=== PATIENT | female | born 1955 | race Caucasian/White ===

== ENCOUNTER → 2018-06-18 14:41 | Outpatient (CLI) | payer OTHER, SELFPAY ==
--- NOTE | 2018-06-18 14:44 | DI.REPORT_ITS ---
SYMPTOMS/DIAGNOSIS: RASH, R21, SARCOIDOSIS, D86.9 CHEST X-RAY, PA AND LATERAL: Comparison is 01/12/03. The heart is normal in size. The lungs are clear. The mediastinal structures and pleura appear intact. IMPRESSION: Normal chest.
[2018-06-18 15:19] LABS: Abs Immature Grans 0.02 k/cumm (0.0-0.09); Absolute Basophil Count 0.02 k/cumm (0.0-0.2); Absolute Eosinophil Count 0.08 k/cumm (0.0-0.7); Absolute Lymphocyte Count 2.19 k/cumm (1.2-3.4); Absolute Monocyte Count 0.45 k/cumm (0.11-0.7); Absolute Neutrophil Count 4.96 k/cumm (1.2-6.7); Basophils % 0.3; HCT 39.3 % (36.0-46.0); HGB 13.3 g/dL (12.0-15.5); Immature Grans % 0.3; Lymphocytes % 28.4; Mean Corp. HGB Concentration 33.8 g/dL (32.0-36.0); Mean Corpuscular Hemoglobin 30.1 pg (27.0-33.0); Mean Corpuscular Volume 88.9 fL (80-95); Mean Platelet Volume 10.1 fL (8.0-11.0); Monocytes % 5.8; Neutrophils % 64.2; Platelet Count 268 x1000/uL (130-400); RBC 4.42 m/cumm (4.00-5.20); RBC Distribution Width 12.1 % (11.7-14.6); White Blood Cell Count 7.72 k/cumm (4.4-10.8)
[2018-06-18 16:15] LABS: ALT 29 U/L (12-78); AST 19 U/L (15-37); Albumin 4.2 g/dL (3.4-5.0); Alkaline Phosphatase 89 U/L (46-116); Anion Gap 7.1 mmol/L (3-11); BUN 31 mg/dL (7-18); Bilirubin, Total 0.3 mg/dL (0.2-1.0); CO2 28.9 mmol/L (21.0-32.0); CREATININE 0.64 mg/dL (0.55-1.02); Calcium 9.1 mg/dL (8.5-10.1); Chloride 103 mmol/L (98-107); Glucose 85 mg/dL (70-100); Potassium 3.9 mmol/L (3.5-5.1); Sodium 139 mmol/L (136-145); Total Protein 7.2 g/dL (6.4-8.2)
[2018-06-19 17:09] LABS: Angiotensin Converting Enzyme 38 U/L (8 - 53)
[2018-06-23 10:44] LABS: TB Interpretation Negative (NEGAT)
== END ==
PROVIDERS: PCP Nurse Practitioner Family; Visit Provider Nurse Practitioner Family
DX: D86.9 Sarcoidosis, unspecified (principal); R21 Rash and other nonspecific skin eruption
CPT/HCPCS: 36415; 80053; 82164; 71046; 85025; 86480

== ENCOUNTER → 2018-06-30 03:55 | Outpatient (CLI) | payer OTHER, SELFPAY ==
--- NOTE | 2018-06-30 13:31 | PFT_ITS ---
PULMONARY FUNCTION TEST REPORT DATE OF SERVICE - June 30, 2018 REQUESTING PROVIDER Alysa Price NP INTERPRETATION OF STUDY Spirometry shows no evidence of obstructive airways disease. No bronchodilator testing was carried out. LUNG VOLUMES - Lung volumes show no evidence of restriction. DIFFUSION CAPACITY- Normal. AIRWAY RESISTANCE - Normal. IMPRESSION Normal pulmonary function study. Clinical correlation recommended. Maria Alejandra Martinez M.D. JAVID/kojo T - 07/01/2018
== END ==
PROVIDERS: PCP Nurse Practitioner Family; Visit Provider Nurse Practitioner Family
DX: D86.9 Sarcoidosis, unspecified (principal)
CPT/HCPCS: 94060; 94150; 94726; 94729

== ENCOUNTER 2020-09-28 14:10 | Outpatient (REF) | payer OTHER, SELFPAY ==
[2020-10-03 02:03] LABS: Patient Race White; SARS-CoV-2 RNA Undetected (Undetected); SARS-CoV-2 Specimen Source Nasal
== END 2020-09-28 14:30 ==
LOC: NCHCN 14:10
PROVIDERS: PCP Nurse Practitioner Family; Visit Provider Nurse Practitioner Family
DX: Z20.828 Contact with and (suspected) exposure to other viral communicable diseases (principal)
CPT/HCPCS: U0003

== ENCOUNTER 2020-10-31 18:36 | Outpatient (REF) | payer OTHER, SELFPAY ==
[2020-10-31 22:05] LABS: HCT 41.3 % (36.0-46.0); HGB 13.6 g/dL (11.2-15.7); MCH 29.2 pg (27.0-33.0); MCHC 32.9 % (32.0-36.0); MCV 88.8 fL (80-95); MPV 11.1 fL (8.0-11.0); Platelet Count 210 10^3/uL (130-400); RBC 4.65 10^6/uL (3.93-5.22); RDW 11.8 % (11.7-14.6); RDW-SD 37.9 fL; WBC 7.25 10^3/uL (4.4-10.8)
[2020-10-31 22:18] LABS: ALT 27 U/L (14-59); AST 19 U/L (15-37); Albumin 4.3 g/dL (3.4-5.0); Alkaline Phosphatase 82 U/L (46-116); Anion Gap 8.1 mmol/L (3-11); BUN 26 mg/dL (7-18); Bilirubin, Total 0.3 mg/dL (0.2-1.0); CO2 28.9 mmol/L (21.0-32.0); CREATININE 1.04 mg/dL (0.55-1.02); Calcium 9.1 mg/dL (8.5-10.1); Chloride 103 mmol/L (98-107); Estimated GFR 53.52 (mL/min/1.73m2); Glucose 101 mg/dL (74-106); Potassium 4.3 mmol/L (3.5-5.1); Sodium 140 mmol/L (136-145); Total Protein 7.3 g/dL (6.4-8.2)
== END 2020-10-31 18:56 ==
LOC: NCHCN 18:36
PROVIDERS: PCP Nurse Practitioner Family; Visit Provider Nurse Practitioner Family
DX: Z00.00 Encounter for general adult medical examination without abnormal findings (principal); D86.9 Sarcoidosis, unspecified
CPT/HCPCS: 80053; 85027

== ENCOUNTER 2021-05-14 01:33 | Outpatient (CLI) | payer OTHER, SELFPAY ==
--- NOTE | 2021-05-14 | DI.MRI_ITS ---
Exam(s) MR LOWER JOINT RT WO EXAM: MR LOWER JOINT RT WO CLINICAL HISTORY: RT KNEE PAIN, M25.561 TECHNIQUE: Multiplanar multisequence MRI was performed.. COMPARISON: No exams were available for comparison FINDINGS: MR examination of the knee was performed according to the usual protocol. There is no significant knee joint effusion. No significant bony signal abnormality seen. Medial tibiofemoral joint: The articular cartilage of the femur and tibia appears well maintained. T here is abnormal signal in the posterior horn of the medial meniscus and there is also contour abnorm ality the inferior surface of meniscus suggesting a nondisplaced tear.. The medial collateral ligame nt appears intact. No posteromedial corner injury seen. Lateral tibiofemoral joint: The articular cartilage of the femur and tibia appears well maintained. The meniscus and attachments appear intact. The lateral collateral ligament complex and posterolater al corner structures appear intact. Patellofemoral joint and extensor mechanism: The articular cartilage of the patellofemoral joint has a fairly smooth surface with mild signal abnormalities at the median ridge period. The superior and inferior patellar fat pads appear normal with no signal abnormality. The quadriceps tendon shows mildly abnormal signal adjacent to its patellar attachment consistent wit h tendinosis. Patellar tendon appear intact with no evidence of a tear or significant edema. The me dial and lateral retinacula appear intact. Cruciate ligaments: Cruciate ligaments and attachments appear normal with no evidence of a tear. Tibiofibular joint: No specific abnormality involving the tibiofibular joint. IMPRESSION: Probable nondisplaced posterior horn medial meniscal tear. Mild articular cartilage signal abnormalities of the patella at the median ridge. Probable mild quadriceps tendinosis. DATA REPOSITORY:
== END 2021-05-14 01:53 ==
PROVIDERS: PCP Nurse Practitioner Family; Visit Provider Nurse Practitioner Family
DX: M25.561 Pain in right knee
CPT/HCPCS: 73721

== ENCOUNTER 2022-09-22 20:37 | Emergency (ER) | payer MEDICARE, OTHER, SELFPAY ==
[2022-09-22 20:42] VITALS: BP 138/83; PULSE 87; RESP 16; TEMP 36.6; O2SAT 98
--- NOTE | 2022-09-22 20:45 | DI.RAD_ITS ---
Exam(s) XR THUMB RT EXAM: XR THUMB RT CLINICAL HISTORY: thumb injury. TECHNIQUE: 2D digital imaging was performed of the right finger. Three views were obtained. PA/AP, oblique, and lateral views were obtained. COMPARISON: No exams were available for comparison FINDINGS: BONES: No acute fracture is present. No bony destructive lesion is seen. JOINTS: No dislocation present. There are mild degenerative changes at the 1st CMC joint. SOFT TISSUE: Normal. IMPRESSION: No evidence of acute fracture, dislocation, or subluxation. DATA REPOSITORY: RADIATION DOSE DELIVERED:
[2022-09-22] MEDS: Amoxicillin 875/Clav. 125 TAB PO (20:52)
--- NOTE | 2022-09-22 21:38 | DI.VRAD_ITS ---
PROCEDURE INFORMATION: Exam: XR Right Finger(s) Exam date and time: 09/22/2022 9:21 PM Age: 67 years old Clinical indication: Other: Thumb injury TECHNIQUE: Imaging protocol: Radiologic exam of the Right fingers. Views: Minimum 2 views. COMPARISON: No relevant prior studies available. FINDINGS: Bones/joints: No evidence of fracture. Negative for dislocation. Negative for bony erosion or destructive change. Moderate narrowing noted at the 1st carpometacarpal joint. Soft tissues: No soft tissue air. No foreign bodies. IMPRESSION: No acute osseous abnormality. If symptoms persist, follow-up imaging is advised. Dictated and Authenticated by: Zacarias Mast MD. Ordering:ERICA Breaux MD
--- NOTE | 2022-09-22 21:53 | ED.GENADUL_ITS ---
Discharge Plan Disposition Patient Disposition: HOME Condition: Stable Discharge Details Clinical Impression: Sprain of hand, thumb, right, Cat bite of finger Primary Care Provider: Alysa Price ED Provider: Saeid Briseno Home Meds and New Rx's Prescriptions: Continued hydroxychloroquine 200 mg tablet 200 mg PO DAILY Discharge Instructions Instructions: Animal Bite (ED), Finger Sprain (ED) Additional Instructions: Watch for any signs of infection and return immediately to the emergency department if these occur. Otherwise keep splint in place for the next week and then slowly advance activity as tolerated. If not improving in the next 1 to 2 weeks please follow-up your primary care provider for reassessment. Referrals: Alysa Price [Primary Care Provider] - 1 week (If not improving) Discharge Data Discharge Date/Time-TO BE ENTERED AT DEPARTURE: 09/22/22 22:15 Medical Decision Making Patient presenting to the emergency department for chief complaint of right thumb injury. Patient states that her cat bit her and in the incident she ended up injuring her right thumb. As the evening has gone on there is been increased swelling and discomfort with decreased range of motion. Physical exam shows significant tenderness to the base of the right thumb and diffuse swelling. There is a single puncture wound on the palmar aspect at the MCP. Exam is otherwise unremarkable. Patient states she is up-to-date on tetanus. We will give patient Augmentin and due to severe pain we will perform radiological imaging. Review of radiological imaging shows no acute findings. Will place patient in a thumb spica splint for pain control and placed on Augmentin. Will inform patient to monitor symptoms and return for any new or significant worsening or if not improving the next week should follow-up with primary care provider. After discussion of diagnosis and plan of care patient has no further needs, questions, or concerns and states clear understanding to return to the emergency department for any worsening symptoms. This documentation was generated using [employer] dictation system, please disregard any oddities of phrase or misspellings. Imaging Data Radiologic Study: Imaging: X-Ray Radiologist's impression: FINDINGS: Bones/joints: No evidence of fracture. Negative for dislocation. Negative for bony erosion or destructive change. Moderate narrowing noted at the 1st carpometacarpal joint. Soft tissues: No soft tissue air. No foreign bodies. IMPRESSION: No acute osseous abnormality. If symptoms persist, follow-up imaging is advised. HPI General Mode of arrival: ambulatory . Date/Time Provider Initiated Documentation: 09/22/22 20:48 . Limitations to Documentation: no limitations . Information obtained by: RN notes reviewed . History of Present Illness 67 year old F presents to the emergency department with the chief complaint of catbite right thumb , described as severe, with intensity rated at 9. Quality is described as sharp, and is localized to the right and upper extremity. Patient reports no radiation. Patient started experiencing this hour(s) (4) and it has been constant. No relieving factors improve symptom(s), No exacerbating factors reported . Patient notes no other symptoms.. Patient did receive the following treatments prior to arrival, none Related Data Home Medications Medication Instructions Recorded Confirmed hydroxychloroquine 200 mg tablet 200 mg PO DAILY 06/03/21 06/03/21 Allergies Allergy/AdvReac Type Severity Reaction Status Date / Time No Known Allergies Allergy Unverified 06/03/21 13:30 General Stated Complaint: Orthopedic SP: 4 Review of Systems Narrative: 6 systems reviewed and unremarkable except what is marked below. Musculoskeletal Musculoskeletal: Reports as per HPI, Reports arthralgias, Reports joint swelling and Reports limited range of motion Integumentary/Breasts Skin/Breast: Reports wounds PFSH All Active Problems (Updated 09/22/22 @ 22:00 by Saeid Briseno NP) Sprain of hand, thumb, right (Acute) Cat bite of finger (Acute) Tear of medial meniscus of right knee (Acute) Social History Smoking/Tobacco Use Status: Former Tobacco Use Smoking risk assessment performed?: Yes Drug use: Never Do you feel safe at home: Yes Do you feel safe in your relationship?: Yes Exam Const General: cooperative, no acute distress and not ill appearing Orientation: alert, awake and oriented x3 Resp Effort & Inspection: normal respiratory effort, able to speak in complete sentences and no respiratory distress Cardio Rate: regular rate Rhythm: regular rhythm Pulses: normal peripheral pulses Neuro General: patient alert, patient awake, patient oriented x3, moves all extremities and no focal motor deficits Sensory Exam: no sensory deficits noted Extrem General: normal exam except as noted Right upper extremity: hand Details: neuromotor exam normal, neurosensory exam normal, tenderness Location: of the thumb, abnormal ROM of finger Details: pain with active ROM Location: of the thumb and pain with passive ROM Location: of the thumb, swelling Location: of the thumb and puncture wound Course Vital Signs Vital signs: Vital Signs Temperature 36.6 C 09/22/22 20:42 Pulse 87 09/22/22 20:42 Respiratory Rate 16 09/22/22 20:42 Blood Pressure 138/83 09/22/22 20:42 Pulse Oximetry 98 09/22/22 20:42 Temperature 36.6 C 09/22/22 20:42 Temperature Source Oral 09/22/22 20:42 Pulse 87 09/22/22 20:42 Respiratory Rate 16 09/22/22 20:42 Respiratory Effort 09/22/22 20:46 Blood Pressure 138/83 09/22/22 20:42 Blood Pressure Position Sitting 09/22/22 20:42 Pulse Oximetry 98 09/22/22 20:42 Oxygen Delivery Method Room Air 09/22/22 20:42 Oxygen Flow Rate 0 09/22/22 20:42 Pain Level 9 09/22/22 20:42
[2022-09-22] MEDS: Amox. 875/Clav. 125, 2 TABS/BTL 1 TAB PO (22:19)
== END 2022-09-22 22:15 | disposition home or self-care (01) ==
PROVIDERS: Emergency Provider Nurse Practitioner Family; PCP Nurse Practitioner Family
DX: S63.681A Other sprain of right thumb, initial encounter (principal); X58.XXXA Exposure to other specified factors, initial encounter; S61.051A Open bite of right thumb without damage to nail, initial encounter; W55.01XA Bitten by cat, initial encounter
CPT/HCPCS: 29125; 99283; 73140

== ENCOUNTER 2023-03-23 21:45 | Outpatient (REF) | payer MEDICARE, OTHER, SELFPAY ==
[2023-03-23 21:51] LABS: Abs Immature Grans 0.03 10^3/uL (0.0-0.06); Absolute Eosinophil Count 0.12 10^3/uL (0.0-0.7); Absolute Lymphocyte Count 1.88 10^3/uL (1.2-3.4); Absolute Monocyte Count 0.78 10^3/uL (0.1-0.8); Absolute Neutrophil Count 8.24 10^3/uL (1.2-6.7); Basophils % 0.5; Eosinophils % 1.1; HCT 40.7 % (36.0-46.0); HGB 13.6 g/dL (11.2-15.7); Immature Grans % 0.3; Lymphocytes % 16.9; MCH 29.2 pg (27.0-33.0); MCHC 33.4 % (32.0-36.0); MCV 88 fL (80-95); MPV 10.3 fL (8.0-11.0); Neutrophils % 74.2; Platelet Count 327 10^3/uL (130-400); RBC 4.65 10^6/uL (3.93-5.22); RDW 11.8 % (11.7-14.6); RDW-SD 37.9 fL
[2023-03-23 21:52] LABS: Absolute Basophil Count 0.06 10^3/uL (0.0-0.2)
[2023-03-23 22:09] LABS: ALT 32 U/L (14-59); AST 21 U/L (15-37); Albumin 4.1 g/dL (3.4-5.0); Alkaline Phosphatase 81 U/L (46-116); Anion Gap 8.1 mmol/L (3-11); BUN 21 mg/dL (7-18); Bilirubin Negative (Negative); Bilirubin, Total 0.3 mg/dL (0.2-1.0); Blood Negative (Negative); CO2 27.9 mmol/L (21.0-32.0); CREATININE 0.6 mg/dL (0.55-1.02); Calcium 9.7 mg/dL (8.5-10.1); Chloride 103 mmol/L (98-107); Clarity Clear (Clear); Estimated GFR 98.93 (mL/min/1.73m2); Glucose 91 mg/dL (74-106); Glucose Negative (Negative); Ketones Negative (Negative); Leukocyte Esterase Negative (Negative); Nitrite Negative (Negative); Potassium 4.6 mmol/L (3.5-5.1); Sodium 139 mmol/L (136-145); Specific Gravity <= 1.005 (1.005-1.025); Total Protein 7.5 g/dL (6.4-8.2); Urobilinogen 0.2 mg/dL (Up to 0.2); pH 5.5 (5-8)
== END 2023-03-23 21:46 | disposition home or self-care (01) ==
LOC: NCHCN 21:45
PROVIDERS: PCP Nurse Practitioner Family; Visit Provider Family Medicine
DX: R10.32 Left lower quadrant pain (principal)
CPT/HCPCS: 80053; 81003; 85025

== ENCOUNTER 2023-03-24 10:52 | Emergency (ER) | payer MEDICARE, OTHER, SELFPAY ==
[2023-03-24 10:56] VITALS: BP 147/70; PULSE 98; RESP 18; O2SAT 98
--- NOTE | 2023-03-24 11:15 | DI.CT_ITS ---
Exam(s) CT ABDOMEN PELVIS W EXAM: CT ABDOMEN PELVIS W CLINICAL HISTORY: L flank pain, no BM. TECHNIQUE: Imaging Protocol: Axial computed tomography images with coronal and sagittal reformatted images were created and reviewed CONTRAST MATERIAL: Intravenous: Omnipaque-350 100cc Oral: None COMPARISON: No exams were available for comparison FINDINGS: VISUALIZED LUNG BASES: There is a small 5 millimeter nodule right lung base, specifically in the late ral basal segment of the right lower lobe. This is contiguous with the right hemidiaphragm. There a re no pleural effusions.. ABDOMEN: There is no ascites. LIVER: No significant intrahepatic lesions. No dilated intrahepatic ducts. GALLBLADDER/BILIARY: No obvious gallbladder pathology. CBD is not dilated. PANCREAS: No evidence of pancreatic mass nor dilatation of the pancreatic duct. SPLEEN: Size upper normal. No splenic lesions seen. Splenic and portal veins are patent. ADRENALS: No adrenal findings. KIDNEYS:No cysts evident. No solid renal masses. No calculi nor hydronephrosis.. ABDOMINAL AORTA: Abdominal aorta is not enlarged. LYMPH NODES:There is no retroperitoneal nor paraaortic adenopathy. ABDOMINAL WALL: No evidence of significant anterior abdominal wall nor inguinal hernia. GI: There is abundant fecal material throughout the entire colon. No evidence of small-bowel obstruction. Diameter of small bowel loops is normal. PELVIS: GI: Appendix surgically absent.No evidence of sigmoid diverticulitis. LYMPH NODES: There is no intrapelvic nor inguinal adenopathy. REPRODUCTIVE: Uterus atrophic or surgically absent. No abnormal adnexal masses. URINARY BLADDER: No calculi nor obvious masses evident OSSEOUS: No fractures and no significant osseous lesions. Chronic disc space narrowing L5-S1 level. IMPRESSION: 1. There is abundant fecal material noted throughout the length of the colon. No obvious transition point. No obvious colitis. No significant sigmoid diverticular disease. 2. Appendix is surgically absent. No evidence of abscess. No free air. No bowel obstruction. 3. Prior hysterectomy. No abnormal adnexal findings. 4. Small 5 millimeter nodule in the right lung base noted. Appropriate follow-up recommended. Called by myself to ER provider. RADIATION DOSE DELIVERED: 684.26mGy.cm Total DLP DATA REPOSITORY: All CT scans at this facility are submitted to the National Radiology Data Registry (NRDR) Dose Index Registry (DIR) with the [employer] (A[employer]). RADIATION OPTIMIZATION: All CT scans at this facility use at least one of these dose optimization te chniques: automated exposure control; mA and/or kV adjustment per patient size (includes targeted exa ms where dose is matched to clinical indication); or iterative reconstruction.
--- NOTE | 2023-03-24 11:26 | ED.GENADUL_ITS ---
Discharge Plan Disposition Patient Disposition: Home Discharge Details Clinical Impression: Constipation, Incidental pulmonary nodule Primary Care Provider: Alysa Price ED Provider: Lorena Penn Home Meds and New Rx's Prescriptions: No Action hydroxychloroquine 200 mg tablet 200 mg PO DAILY Patient Comments: not taking right now cholecalciferol (vitamin D3) [Vitamin D3] 50 mcg (2,000 unit) Capsule 2,000 mcg PO DAILY Discharge Instructions Instructions: Constipation (ED), Pulmonary Nodules (ED) Additional Instructions: Take [id number] MiraLAX as needed until you start having bowel movements. If you begin having hard stools you may use suppositories or enema. You also were found to have an incidental lung nodule today. Please follow-up with primary care to continue to monitor this nodule. Referrals: Alysa Price [Primary Care Provider] - 1 week Discharge Data Discharge Physician: Lorena Penn Medical Decision Making 68-year-old female with history of diverticulitis presents for evaluation of ongoing abdominal pain and now with inability to have bowel movement. CT of abdomen pelvis shows large amount of stool burden. No signs of infection. Cas yates is reassured by these findings. She will start MiraLAX at home. She understands indications to return. Medical Records Medical records narrative: Reviewed patient's recent laboratory studies. Imaging Data Radiologic Study: Radiologist's impression: CT abdomen pelvis - 1. There is abundant fecal material noted throughout the length of the colon. No obvious transition point. No obvious colitis. No significant sigmoid di verticular disease. 2. Appendix is surgically absent. No evidence of abscess. No free air. No bowel obstruction. 3. Prior hysterectomy. No abnormal adnexal findings. 4. Small 5 millimeter nodule in the right lung base noted. Appropriate follow- up recommended. HPI General Date/Time Provider Initiated Documentation: 03/24/23 11:06 . HPI Narrative: 68-year-old female presents for evaluation of ongoing left flank pain. Patient states that symptoms started last week. She does have a history of diverticulitis and redundant colon. She states that she has a steady discomfort in her left flank. She initially was having normal bowel movements however she has been having less and less bowel movements as time goes on. She did not have a bowel movement at all today. She denies any fevers or chills. No nausea or vomiting. She is tolerating normal p.o. No increased urinary frequency, dysuria, gross hematuria. She has had hysterectomy in the past. Denies any cough or cold. No chest pain or shortness of breath. No history of kidney stones. No rashes. She was seen by primary care yesterday and on outpatient blood work done. She had a mildly elevated white count at that time. Plan was to order outpatient CT however that has not happened yet. She is concerned because she has not been able to have a bowel movement or pass gas today. Related Data Home Medications Medication Instructions Recorded Confirmed hydroxychloroquine 200 mg tablet 200 mg PO DAILY 06/03/21 06/03/21 cholecalciferol (vitamin D3) 50 2,000 mcg PO DAILY 03/24/23 03/24/23 mcg (2,000 unit) capsule (Vitamin D3) Allergies Allergy/AdvReac Type Severity Reaction Status Date / Time No Known Allergies Allergy Unverified 03/24/23 10:59 General Stated Complaint: Abd Prob SP: 3 Review of Systems Narrative: Remainder of review of systems otherwise negative except for as noted in the HPI x10. PFSH All Active Problems (Updated 03/24/23 @ 12:24 by Lorena Penn MD) Constipation (Acute) Incidental pulmonary nodule (Acute) Tear of medial meniscus of right knee (Acute) Social History Smoking/Tobacco Use Status: Former Tobacco Use Smoking risk assessment performed?: Yes Alcohol Intake: current Alcohol Intake frequency: holidays/special occasions only Drug use: Never Substance use type: does not use Do you feel safe at home: Yes Do you feel safe in your relationship?: Yes Exam Narrative Exam Narrative: General: non-toxic, no respiratory distress, comfortable HEENT: normocephalic, atraumatic, lids and lashes normal, PERRL, EOMI, anicteric sclera, no conjunctival injection, moist oral mucosa Card: regular rate and rhythm, S1S2, no murmurs, rubs, or gallops Lungs: good air entry, clear to auscultation bilaterally. no wheezes, rales, rhonci, or retractions Abd: soft, non-tender, non-distended, normal bowel sounds, no rebound or guarding, no peritoneal signs, no CVAT Musculoskeletal: full range of motion of arms and legs, no tenderness to palpation. no clubbing, cyanosis, or edema Neurologic: appropriate for age, strength normal Psych: alert and oriented Skin: no petechiae, no lesions, warm and dry Course Vital Signs Vital signs: Vital Signs Pulse 98 H 03/24/23 10:56 Respiratory Rate 18 03/24/23 10:56 Blood Pressure 147/70 H 03/24/23 10:56 Pulse Oximetry 98 03/24/23 10:56 Pulse 98 H 03/24/23 10:56 Respiratory Rate 18 03/24/23 10:56 Respiratory Effort Normal 03/24/23 11:01 Blood Pressure 147/70 H 03/24/23 10:56 Blood Pressure Position Sitting 03/24/23 10:56 Pulse Oximetry 98 03/24/23 10:56 Oxygen Delivery Method Room Air 03/24/23 10:56 Oxygen Flow Rate 0 03/24/23 10:56 Pain Level 8 03/24/23 10:56
[2023-03-24] MEDS: Omnipaque 350 MG/ML 500 ML BTL-Imaging package IJ (11:45)
[2023-03-24] MEDS: Normal Saline - Diluent 50 ML VIAL IJ (11:45)
[2023-03-24] MEDS: Normal Saline Flush 10 ML SYR IVP (11:46)
[2023-03-24 11:47] LABS: Abs Immature Grans 0.03 10^3/uL (0.0-0.06); Absolute Basophil Count 0.04 10^3/uL (0.0-0.2); Absolute Eosinophil Count 0.12 10^3/uL (0.0-0.7); Absolute Monocyte Count 0.71 10^3/uL (0.1-0.8); Absolute Neutrophil Count 5.33 10^3/uL (1.2-6.7); Basophils % 0.5; Eosinophils % 1.5; HCT 39.7 % (36.0-46.0); HGB 13.6 g/dL (11.2-15.7); Immature Grans % 0.4; Lymphocytes % 22.4; MCH 29.6 pg (27.0-33.0); MCHC 34.3 % (32.0-36.0); MCV 86 fL (80-95); MPV 9.1 fL (8.0-11.0); Monocytes % 8.8; Neutrophils % 66.4; Platelet Count 310 10^3/uL (130-400); RDW 11.8 % (11.7-14.6); RDW-SD 36.8 fL; WBC 8.03 10^3/uL (4.4-10.8)
[2023-03-24 12:06] LABS: ALT 30 U/L (14-59); AST 14 U/L (15-37); Alkaline Phosphatase 83 U/L (46-116); Anion Gap 8.7 mmol/L (3-11); BUN 20 mg/dL (7-18); Bilirubin, Total 0.3 mg/dL (0.2-1.0); CO2 28.3 mmol/L (21.0-32.0); CREATININE 0.8 mg/dL (0.55-1.02); Calcium 9.3 mg/dL (8.5-10.1); Chloride 102 mmol/L (98-107); Estimated GFR 81.21 (mL/min/1.73m2); Glucose 96 mg/dL (74-106); Lipase 68 U/L (16-77); Sodium 139 mmol/L (136-145); Total Protein 7.7 g/dL (6.4-8.2)
[2023-03-24 12:44] VITALS: BP 147/70; PULSE 85; RESP 18; O2SAT 98
== END 2023-03-24 12:46 | disposition home or self-care (01) ==
PROVIDERS: Emergency Provider Emergency Medicine Emergency Medical Services; PCP Nurse Practitioner Family
DX: K59.00 Constipation, unspecified (principal); R91.1 Solitary pulmonary nodule; K57.92 Diverticulitis of intestine, part unspecified, without perforation or abscess without bleeding
CPT/HCPCS: 36415; 80053; 83690; 99285; 74177; 85025; 99283

== ENCOUNTER 2025-09-29 09:58 | Outpatient (CLI) | payer MEDICARE, OTHER, SELFPAY ==
[2025-09-29 10:40] LABS: ALT 14 U/L (10-49); AST 20 U/L (<34); Albumin 4.5 g/dL (3.4-5.0); Alkaline Phosphatase 93 U/L (46-116); Anion Gap 7 mmol/L (3-11); BUN 24 mg/dL (9-23); Bilirubin, Total 0.60 mg/dL (0.2-1.2); CO2 29.0 mmol/L (20.0-31.0); Calcium 9.2 mg/dL (8.3-10.6); Chloride 108 mmol/L (98-107); Glucose 89 mg/dL (74-106); Potassium 4.3 mmol/L (3.5-5.1); Sodium 144 mmol/L (136-145); Total Protein 7.0 g/dL (5.7-8.2)
== END 2025-09-29 09:59 | disposition home or self-care (01) ==
LOC: LBO 09:59
PROVIDERS: PCP Nurse Practitioner Family; Visit Provider Student in an Organized Health Care Education/Training Program
DX: Z79.899 Other long term (current) drug therapy (principal)
CPT/HCPCS: 36415; 80053